=== PATIENT | female | born 1970 | race Two or more races ===

== ENCOUNTER → 2019-08-27 | Outpatient (CLI) | payer BC ==
[~2019-08-27] MED LIST: AMLO25PO MC; AMLO5TAB10 PO; AMLO5TAB4 PO; CETI-17 PO; FLUT16SP2 NS; LOSA-73 PO; LOSA100T14 PO; LOSA1TAB25 PO; METO-239 PO; METO25TA4 PO; POTA20TA4 PO; SIMV10TA15 PO; SIMV40TA18 PO; TRAM100T12 PO; TRAM50TA PO; ZOLPIDEM 5 MG TABLET. PO ONE
--- NOTE | 2019-08-28 19:58 | SLEEP ---
DATE OF STUDY: 08/27/2019 SLEEP STUDY ATTENDING PHYSICIAN: Amalia Kilpatrick MD. The patient is a 48-year-old who weighs 151 pounds with a BMI of 20. The patient had a sleep study at another facility and was positive for ROBERT. This was more than 5 years ago. The patient was referred for another split-night study. During the night study, the patient spent 435 minutes in bed and slept for 401 minutes with a sleep efficiency of 92%. Sleep latency was 24 minutes with a REM latency of 110 minutes. Sleep architecture showed normal stage 1 sleep, increased stage 2 sleep, normal slow wave and normal REM sleep. During the initial diagnostic portion of the study, the patient slept for 134 minutes. During that time, there were 11 obstructive apneas, no mixed or central apneas and 29 hypopneas. The patient's AHI was 18 per hour with a supine AHI of 21 per hour and a REM AHI of 87 per hour. EKG monitoring revealed a mean heart rate of 83 beats per minute, no sustained arrhythmias observed. Nocturnal oximetry study revealed a mean oxygen saturation of 95% with lowest of 77%; 3% of time oxygen saturation remained between 80% and 89%. No significant PLM seen. The patient met the criteria for CPAP initiation. It was started at 5 cm water and titrated up to 7 cm water. At the final pressure, the patient slept for 162 minutes. The patient had supine as well as REM sleep. The patient's AHI was reduced to 0 per hour and oxygen saturation remained above 93%. The patient used small nasal pillows. IMPRESSION: 1. Moderate obstructive sleep apnea with worsening during REM sleep. Total AHI 18 per hour with a REM AHI of 87 per hour. 2. Mild nocturnal hypoxia secondary to obstructive sleep apnea, but resolved with CPAP. 3. No clinically significant periodic limb movements. RECOMMENDATIONS: 1. CPAP at 7 cm water completely eliminated the patient's sleep apnea and should be used on a nightly basis. 2. Follow up in 4-6 weeks to assess compliance with CPAP and to document clinical improvement. 3. Avoid [employer] REPRES[employer]IVE depressants. 4. Cautioned regarding driving until symptoms of sleep apnea resolved with the use of CPAP. MILAGROS PEREZ MD DR: ALDO/bartolo JOB#: [id number] / [id number] ALIA Mclaughlin MD
== END | disposition home or self-care (01) ==
LOC: RT 18:43
PROVIDERS: ATTEND Family Medicine
DX: G47.33 Obstructive sleep apnea (adult) (pediatric) (principal); G47.34 Idiopathic sleep related nonobstructive alveolar hypoventilation
CPT/HCPCS: 95810

== ENCOUNTER → 2019-10-07 | Outpatient (CLI) | payer BC ==
[~2019-10-07] MED LIST changes: +ASPI-630 PO; +ASPI81TA59 PO; +CETI10TA16 PO; +CETI10TA30 PO; +GABA600T7 PO; +IV RINGERS,LACTATED 1000ML 1,000 ML IV SCH; +LISI-338 PO; +ONDANSETRON PF 4 MG/2 ML VIAL. IV PRN; +PROCHLORPERAZINE 10 MG/2 ML VIAL. IV PRN; -ZOLPIDEM 5 MG TABLET. PO ONE; +fentaNYL PF VIAL 100 MCG/2 ML VIAL IV PRN
== END ==
LOC: MERGE 12:17 → SURG 12:17 → SURGPAT 12:17 → EDSTATUS 10-11 07:00
PROVIDERS: ATTEND Internal Medicine Gastroenterology
DX: Z01.812 Encounter for preprocedural laboratory examination (principal); Z11.59 Encounter for screening for other viral diseases; R19.7 Diarrhea, unspecified; R10.9 Unspecified abdominal pain
CPT/HCPCS: 36415; 87635

== ENCOUNTER → 2019-10-11 | Day surgery (SDC) | payer BC ==
[~2019-10-11] MED LIST changes: -ASPI81TA59 PO; +LIDOCAINE 2% PF 5 ML VIAL. ONE; -LISI-338 PO; -ONDANSETRON PF 4 MG/2 ML VIAL. IV PRN; -PROCHLORPERAZINE 10 MG/2 ML VIAL. IV PRN; +PROPOFOL 10 MG/ML (20ML) VIAL. IV ONE; -fentaNYL PF VIAL 100 MCG/2 ML VIAL IV PRN
[2019-10-11 08:15] VITALS: BP 138/84
--- NOTE | 2019-10-14 13:07 | PATHOLOGY ---
[facility] Accession Number: [id number] . 01 Material submitted: . PART A: duodenum - DUODENUM BX PART B: colon - RANDOM COLON BX . 01 Clinical history: . Abdominal pain . 02 Diagnosis: A. Duodenal biopsies: - No significant pathologic abnormalities. . B. Colonic mucosa, random colon biopsies: - No significant pathologic abnormalities. (JPM:alycia; 10/14/2019) S 10/14/2019 0936 Local . 02 Comment: Sections of the duodenal biopsy reveal multiple segments of small intestine mucosa. Where best oriented, the mucosal villi show no sprue-like changes or significant inflammatory changes. . Sections of the random colon biopsy reveal multiple segments of colonic mucosa containing a few mucosal-associated lymphoid aggregates. There is no evidence of a chronic destructive colitis, lymphocytic colitis, or collagenous colitis. (JPM:alycia; 10/14/2019) . 02 Electronically signed: . Jack Sarabia MD, Pathologist NPI- [id number] . 01 Gross description: . A. The specimen is received in formalin labeled "Bee, Nasra, duodenal BX rule out celiac" and consists of multiple fragments of pink-chisholm tissue measuring 2.2 x 0.7 x 0.2 cm in aggregate which is entirely submitted in A1. . B. The specimen is received in formalin labeled "Bee, Nasra, random colon BX" and consists of multiple fragments of pink-chisholm tissue measuring 1.2 x 0.7 x 0.2 cm in aggregate which is entirely submitted in B1. (PATRICIA; 10/11/2019) JFQ/JFQ 10/11/2019 1438 Local . 02 Pathologist provided ICD-10: R10.9 . 02 CPT . 861947, [id number] Specimen Comment: A courtesy copy of this report has been sent to [phone], [phone] Specimen Comment: [id number] Specimen Comment: Report sent to / DR SILVA Performed at: 01 [facility] [address], [place] [id number] MD Forest Worthington MD Phone: [phone] Performed at: 02 [facility] [address], [place] [id number] MD Jack Sarabia MD Phone: [phone]
== END | disposition home or self-care (01) ==
LOC: ENDOS 05:53
PROVIDERS: ATTEND Internal Medicine Gastroenterology
DX: R19.7 Diarrhea, unspecified (principal); K63.89 Other specified diseases of intestine; K29.50 Unspecified chronic gastritis without bleeding; K64.0 First degree hemorrhoids; K31.89 Other diseases of stomach and duodenum; E78.00 Pure hypercholesterolemia, unspecified; I11.0 Hypertensive heart disease with heart failure; I50.9 Heart failure, unspecified; K57.30 Diverticulosis of large intestine without perforation or abscess without bleeding; K21.9 Gastro-esophageal reflux disease without esophagitis; E66.01 Morbid (severe) obesity due to excess calories; Z68.45 Body mass index [BMI] 70 or greater, adult; Z88.8 Allergy status to other drugs, medicaments and biological substances; Z90.49 Acquired absence of other specified parts of digestive tract; Z90.710 Acquired absence of both cervix and uterus
CPT/HCPCS: 43239; 45380; 88305; J2704; J3490

== ENCOUNTER 2019-10-24 18:06 | Inpatient (IN) | payer BC ==
[~2019-10-24] VITALS: Ht 151.1 cm; Wt 75.7 kg
[~2019-10-24 18:06] MED LIST changes: -IV RINGERS,LACTATED 1000ML 1,000 ML IV SCH; -LIDOCAINE 2% PF 5 ML VIAL. ONE; -PROPOFOL 10 MG/ML (20ML) VIAL. IV ONE
[2019-10-24] MEDS ORDERED: IV NORMAL SALINE 1000ML BAG 1,000 ML IV SCH (18:33)
[2019-10-24 18:42] LABS: BASO % 1 % (0-3); EOS # 0.1 x10^3/uL (0.0-0.7); EOS % 2 % (0-3); HEMATOCRIT 41.5 % (36.0-47.0); LYMPH # 2.6 x10^3/uL (1.0-4.8); LYMPH % 40 % (24-48); MEAN CORPUSCULAR HEMOGLOBIN 29 pg (25-35); MEAN CORPUSCULAR HGB CONC 34 g/dL (31-37); MEAN CORPUSCULAR VOLUME 86 fL (79-100); MONO # 0.4 x10^3/uL (0.0-1.1); MONO % 7 % (0-9); NEUT # 3.3 x10^3/uL (1.8-7.7); NEUT % 51 % (31-73); PLATELET COUNT 223 x10^3/uL (140-400); RED BLOOD COUNT 4.84 x10^6/uL (3.50-5.40); RED CELL DISTRIBUTION WIDTH 12.9 % (11.5-14.5); WHITE BLOOD COUNT 6.4 x10^3/uL (4.0-11.0)
[2019-10-24] MEDS ORDERED: MORPHINE SULFATE 4 MG/ML VIAL. IV/SQ PRN (18:45)
[2019-10-24] MEDS ORDERED: ONDANSETRON PF 4 MG/2 ML VIAL. IVP ONE (18:45)
[2019-10-24] MEDS ORDERED: ASPIRIN CHEWABLE 81 MG TABLET. PO ONE (18:45)
--- NOTE | 2019-10-24 18:47 | PHYS DOC ---
Past Medical History Past Medical History: Hypertension, PA, Stroke, Other Additional Past Medical Histor: low K, dumping syndrome, syncope, degenerative bone disease Past Surgical History: Cholecystectomy, Hysterectomy, Tonsillectomy, Other Additional Past Surgical Histo: loop recorder, cardiac cath, endometrial ablation, Smoking Status: Never Smoker Alcohol Use: None Drug Use: None General Adult EDM: Chief Complaint: CHEST PAIN HPI: HPI: Patient is a 48 year old female who presents with complaint of left-sided chest pain that started at about 3:00 to 3:30 this afternoon. Patient states that she was at work when the pain started. She states that this morning when she went into work, she was having some lightheadedness and felt just little bit off. Patient rates pain in her chest at a 9 out of 10. She denies any nausea, vomiting or diaphoresis. She states that pain radiates down her left arm. [] Review of Systems: Review of Systems: Constitutional: Denies fever or chills. [] Respiratory: Denies cough or shortness of breath. [] Cardiovascular: Complains of chest pain. [] GI: Denies abdominal pain, nausea, vomiting or diarrhea. [] Neurologic: Denies headache, focal weakness or sensory changes. [] A full 10 point review of systems has been reviewed and is otherwise negative. Heart Score: Risk Factors: Risk Factors: DM, Current or recent (<one month) smoker, HTN, HLP, family history of CAD, obesity. Risk Scores: Score 0 - 3: 2.5% MACE over next 6 weeks - Discharge Home Score 4 - 6: 20.3% MACE over next 6 weeks - Admit for Clinical Observation Score 7 - 10: 72.7% MACE over next 6 weeks - Early Invasive Strategies Current Medications: Current Medications Medications (Trade) Dose Ordered Sig/Marek Start Time Stop Time Status Last Admin Dose Admin Aspirin (Aspirin Chewable) 324 mg 1X ONCE 10/24/19 18:45 10/24/19 18:46 Morphine Sulfate (Morphine Sulfate) 4 mg PRN Q15MIN PRN 10/24/19 18:45 10/25/19 18:44 UNV Ondansetron HCl (Zofran) 4 mg 1X ONCE 10/24/19 18:45 10/24/19 18:46 UNV Sodium Chloride 1,000 ml @ 1,000 mls/hr Q1H 10/24/19 18:33 10/24/19 19:32 UNV Allergies: Allergies: Allergies Coded Allergies Type Severity Reaction Last Updated Verified Sulfa (Sulfonamide Antibiotics) Allergy Severe Anaphylaxis 10/11/19 Yes ciprofloxacin HCl Allergy Severe Anaphylaxis 10/11/19 Yes doxycycline Allergy Severe Anaphylaxis 10/11/19 Yes sulfamethoxazole Allergy Severe Anaphylaxis 10/11/19 Yes trimethoprim Allergy Severe Anaphylaxis 10/11/19 Yes Latex, Natural Rubber Allergy Intermediate Hives 10/11/19 Yes adhesive Allergy Intermediate 10/11/19 Yes oxycodone Allergy Intermediate Hives 10/11/19 Yes Physical Exam: PE: Constitutional: Well developed, well nourished, no acute distress, non-toxic appearance. [] HENT: Normocephalic, atraumatic, bilateral external ears normal, oropharynx moist, no oral exudates, nose normal. [] Eyes: PERRLA, EOMI, conjunctiva normal, no discharge. [] Neck: Normal range of motion, no tenderness, supple, no stridor. [] Cardiovascular: Regular rate and rhythm [] Lungs & Thorax: Bilateral breath sounds clear to auscultation [] Abdomen: Bowel sounds normal, soft, no tenderness. [] Skin: Warm, dry, no erythema, no rash. [] Extremities: No tenderness, no cyanosis, no clubbing, ROM intact. [] Neurologic: Alert and oriented X 3, no focal deficits noted. [] Current Patient Data: Labs: Laboratory Tests Test 10/24/19 18:25 White Blood Count 6.4 x10^3/uL (4.0-11.0) Red Blood Count 4.84 x10^6/uL (3.50-5.40) Hemoglobin 14.0 g/dL (12.0-15.5) Hematocrit 41.5 % (36.0-47.0) Mean Corpuscular Volume 86 fL (79-100) Mean Corpuscular Hemoglobin 29 pg (25-35) Mean Corpuscular Hemoglobin Concent 34 g/dL (31-37) Red Cell Distribution Width 12.9 % (11.5-14.5) Platelet Count 223 x10^3/uL (140-400) Neutrophils (%) (Auto) 51 % (31-73) Lymphocytes (%) (Auto) 40 % (24-48) Monocytes (%) (Auto) 7 % (0-9) Eosinophils (%) (Auto) 2 % (0-3) Basophils (%) (Auto) 1 % (0-3) Neutrophils # (Auto) 3.3 x10^3/uL (1.8-7.7) Lymphocytes # (Auto) 2.6 x10^3/uL (1.0-4.8) Monocytes # (Auto) 0.4 x10^3/uL (0.0-1.1) Eosinophils # (Auto) 0.1 x10^3/uL (0.0-0.7) Basophils # (Auto) 0.0 x10^3/uL (0.0-0.2) Laboratory Tests 10/24/19 18:25 EKG: EKG: [] Radiology/Procedures: Radiology/Procedures: [] Course & Med Decision Making: Course & Med Decision Making Pertinent Labs and Imaging studies reviewed. (See chart for details) [] Dragon Disclaimer: Dragon Disclaimer: This electronic medical record was generated, in whole or in part, using a voice recognition dictation system. Departure Departure Impression: Primary Impression: Chest pain Qualified Codes: R07.9 - Chest pain, unspecified Disposition: ADMITTED INPATIENT Admitting Physician: SHELL Condition: IMPROVED Referrals: AMALIA SILVA MD (PCP) MICHAEL GONZALES Jr. DO October 24, 2019 18:47
[2019-10-24 18:51] LABS: CALCIUM 8.5 mg/dL (8.5-10.1); CREATININE 0.7 mg/dL (0.6-1.0); GFR 90.1; POTASSIUM 3.3 mmol/L (3.5-5.1)
[2019-10-24 18:57] LABS: ALBUMIN 3.9 g/dL (3.4-5.0); ALBUMIN/GLOBULIN RATIO 1.1 (1.0-1.7); TOTAL BILIRUBIN 0.4 mg/dL (0.2-1.0); TOTAL PROTEIN 7.4 g/dL (6.4-8.2)
--- NOTE | 2019-10-24 19:09 | RAD ---
PORTABLE CHEST 1V Clinical indications: Chest pain. COMPARISON: May 29, 2013. Findings: No acute lung infiltrate or pleural effusion or pulmonary edema or lung mass or pneumothorax is seen. The heart size, pulmonary vasculature, mediastinum and both rosita are unremarkable. Impression: No acute radiographic abnormality is seen. Electronically signed by: Jaison Vargas MD (10/24/2019 7:07 PM) [facility] [place]
[2019-10-24] MEDS ORDERED: MORPHINE SULFATE 4 MG/ML VIAL. IV PRN (19:30)
[2019-10-24 21:30] VITALS: BP 192/103
[2019-10-24 23:50] VITALS: BP 146/98
[2019-10-25] MEDS: ONDANSETRON PF 4 MG/2 ML VIAL. IV PRN ×2 (02:03→09:52)
[2019-10-25 02:35] VITALS: BP 146/86
--- NOTE | 2019-10-25 06:55 | EKG ---
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
[2019-10-25 07:20] VITALS: BP 138/85
--- NOTE | 2019-10-25 08:21 | PDOC2 ---
CARDIAC CONSULT DATE OF CONSULT Date of Consult DATE: 10/25/19 TIME: 08:11 REASON FOR CONSULT Reason for Consult: Chest pain REFERRING PHYSICIAN Referring Physician: Bk SOURCE Source: Chart review, Patient HISTORY OF PRESENT ILLNESS HISTORY OF PRESENT ILLNESS This is a pleasant 48 yo female admitted for complains of chest pain. 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 No recent heavy lifting. She was at work after getting some auto parts that were light when she started not feeling. Reports of shocking chest pain radiating to left shoulder and being lightheaded and nauseated and this occurred around 3 PM lasting about 30 minutes and evetually disspitating upon admission but still overnight it was on and off occruing mostly when walking to the bathroom. This is not reproducible with ROM maneuvers and palpation. nor deep breathing. Denies any recent falls, syncope or any recent injuries. 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 She used to live here but moved to [facility] and had echo and stress test mid last yr for JEYSON clearance. She had remote [facility] with no intervention. She has DM hx bu8t taken off meds due to hypoglycemia. She also had ILR in the past due to syncope but EP noted no conclusive rhythm anomalies and was taken out 6 weeks later after insertion. 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) Pulmonary: COPD, Other (ROBERT CPAP) CENTRAL NERVOUS SYSTEM: Migraine, Periperal neuropathy GI: GERD Psych: Anxiety Musculoskeletal: low back pain (lumbar syenosis) Rheumatologic: No pertinent hx Infectious disease: No pertinent hx ENT: Allergic Rhinitis Renal/: Other (menopause) Endocrine: Diabetes (no med), Other (hypglycemia) Dermatology: No pertinent hx PAST SURGICAL HISTORY Past Surgical History: Appendectomy, Cholecystectomy, , Tonsillectomy, Hysterectomy, Other (ILR 2013, LHCx2; recently had EGD/colonoscopy for abd pain >1 wk ago result pending) FAMILY HISTORY Family History: Coronary Artery Disease (father) SOCIAL HISTORY Smoke: No ALCOHOL: none Drugs: None Lives: with Family CURRENT MEDICATIONS CURRENT MEDICATIONS Current Medications Medications (Trade) Dose Ordered Sig/Marek Route PRN Reason Start Time Stop Time Status Last Admin Dose Admin Aspirin (Aspirin Chewable) 324 mg 1X ONCE PO 10/24/19 18:45 10/24/19 18:46 DC 10/24/19 19:04 Morphine Sulfate (Morphine Sulfate) 4 mg PRN Q15MIN PRN IV/SQ PAIN GREATER THAN 3/10 10/24/19 18:45 10/25/19 18:44 10/24/19 19:04 Sodium Chloride 1,000 ml @ 1,000 mls/hr Q1H IV 10/24/19 18:33 10/24/19 19:32 DC 10/24/19 19:05 Ondansetron HCl (Zofran) 4 mg 1X ONCE IVP 10/24/19 18:45 10/24/19 18:46 DC 10/24/19 19:04 Ondansetron HCl (Zofran) 4 mg PRN Q8HRS PRN IV NAUSEA/VOMITING 10/24/19 19:30 10/25/19 19:29 10/25/19 02:03 Morphine Sulfate (Morphine Sulfate) 4 mg PRN Q2HR PRN IV PAIN 10/24/19 19:30 10/25/19 19:29 10/25/19 02:02 ALLERGIES ALLERGIES: Coded Allergies: Sulfa (Sulfonamide Antibiotics) (Verified Allergy, Severe, Anaphylaxis, 10/11/19) ciprofloxacin HCl (Verified Allergy, Severe, Anaphylaxis, 10/11/19) doxycycline (Verified Allergy, Severe, Anaphylaxis, 10/11/19) sulfamethoxazole (Verified Allergy, Severe, Anaphylaxis, 10/11/19) trimethoprim (Verified Allergy, Severe, Anaphylaxis, 10/11/19) Latex, Natural Rubber (Verified Allergy, Intermediate, Hives, 10/11/19) adhesive (Verified Allergy, Intermediate, 10/11/19) oxycodone (Verified Allergy, Intermediate, Hives, 10/24/19) MORPHINE OK ROS Review of System 14 point ROS evaluated with pertinent PHYSICAL EXAM General: Alert, Oriented X3, Cooperative, No acute distress HEENT: Atraumatic, Mucous membr. moist/pink Lungs: Clear to auscultation, Normal air movement Heart: Regular rate (SR), Normal S1, Normal S2, No murmurs Abdomen: Soft, No tenderness Extremities: No cyanosis, Other (trace LE edma) Skin: No breakdown, No significant lesion Neuro: Normal speech, Sensation intact Psych/Mental Status: Mental status NL, Mood NL MUSCULOSKELETAL: Osteoarthritic changes both hands VITALS/I&O VITALS/I&O: Vital Signs Date Time Temp Pulse Resp B/P (MAP) Pulse Ox O2 Delivery O2 Flow Rate FiO2 10/25/19 07:20 97.2 72 18 138/85 (102) 98 Room Air 97.2 I & O 10/24/19 10/24/19 10/25/19 15:00 23:00 07:00 Intake Total 1240 ml 300 ml Output Total 475 ml Balance 1240 ml -175 ml LABS Lab: Laboratory Tests Test 10/24/19 18:25 10/24/19 22:22 10/25/19 01:40 White Blood Count 6.4 x10^3/uL (4.0-11.0) Red Blood Count 4.84 x10^6/uL (3.50-5.40) Hemoglobin 14.0 g/dL (12.0-15.5) Hematocrit 41.5 % (36.0-47.0) Mean Corpuscular Volume 86 fL (79-100) Mean Corpuscular Hemoglobin 29 pg (25-35) Mean Corpuscular Hemoglobin Concent 34 g/dL (31-37) Red Cell Distribution Width 12.9 % (11.5-14.5) Platelet Count 223 x10^3/uL (140-400) Neutrophils (%) (Auto) 51 % (31-73) Lymphocytes (%) (Auto) 40 % (24-48) Monocytes (%) (Auto) 7 % (0-9) Eosinophils (%) (Auto) 2 % (0-3) Basophils (%) (Auto) 1 % (0-3) Neutrophils # (Auto) 3.3 x10^3/uL (1.8-7.7) Lymphocytes # (Auto) 2.6 x10^3/uL (1.0-4.8) Monocytes # (Auto) 0.4 x10^3/uL (0.0-1.1) Eosinophils # (Auto) 0.1 x10^3/uL (0.0-0.7) Basophils # (Auto) 0.0 x10^3/uL (0.0-0.2) Sodium Level 139 mmol/L (136-145) Potassium Level 3.3 mmol/L (3.5-5.1) L Chloride Level 102 mmol/L (98-107) Carbon Dioxide Level 27 mmol/L (21-32) Anion Gap 10 (6-14) Blood Urea Nitrogen 8 mg/dL (7-20) Creatinine 0.7 mg/dL (0.6-1.0) Estimated GFR (Cockcroft-Gault) 90.1 BUN/Creatinine Ratio 11 (6-20) Glucose Level 84 mg/dL (70-99) Calcium Level 8.5 mg/dL (8.5-10.1) Magnesium Level 2.0 mg/dL (1.8-2.4) Total Bilirubin 0.4 mg/dL (0.2-1.0) Aspartate Amino Transferase (AST) 25 U/L (15-37) Alanine Aminotransferase (ALT) 26 U/L (14-59) Alkaline Phosphatase 83 U/L (46-116) Troponin I Quantitative < 0.017 ng/mL (0.000-0.055) < 0.017 ng/mL (0.000-0.055) < 0.017 ng/mL (0.000-0.055) WZ-Dpl-K-Type Natriuretic Peptide 45 pg/mL (0-124) Total Protein 7.4 g/dL (6.4-8.2) Albumin 3.9 g/dL (3.4-5.0) Albumin/Globulin Ratio 1.1 (1.0-1.7) Lipase 102 U/L (73-393) Laboratory Tests 10/24/19 18:25 Laboratory Tests 10/24/19 18:25 ECHOCARDIOGRAM ECHOCARDIOGRAM KYMBERLY <Conclusion> The left ventricle is normal size. There is normal left ventricular wall thickness. The left ventricular systolic function is normal and the ejection fraction is within normal range. The aortic valve is normal in structure and function. The mitral valve is normal in structure and function. Doppler and Color Flow revealed trace mitral regurgitation. The aortic root is normal in size.No dissection is noted DICTATED and SIGNED BY: ALMA HADDAD MD DATE: 08/12/13 1212 STRESS TEST STRESS TEST Conclusion 1. There are no significant stress EKG changes or ST changes noted. 2. The stress and resting images show normal perfusion. 3. Left ventricular function is normal 4. Low risk MPI DATE: 06/03/13 1104 ASSESSMENT/PLAN ASSESSMENT/PLAN 1. Atypical CP: doubt ACS, possibly anxiety and uncontrolled HTN. trops nml 2. HTN urgency: better 3. Anxiety: per PCP 4. 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 HLP 7. Hx of DM/hypoglycemia: no meds and BG is controlled so far Recommendations 1. Start on low dose lisinopril. Encouraged HBPM 2. Check lipids and TSH. Start statin pending lipid level. TTE 3. Follow up in office with Dr Davila on December 26 9:15 4. Consider baby ECASA if not contraindicated from EGD/colonoscopy findings 5. Monitor overnight anticpate DC tomorrow. Awaiting cardiac records RANDEE CELAYA APRN October 25, 2019 08:21
--- NOTE | 2019-10-25 08:37 | PDOC1 ---
History and Physical Date of Admission Date of Admission DATE: 10/25/19 TIME: 08:36 Identification/Chief Complaint Chief Complaint chest pain Source Source: Chart review, Patient History of Present Illness History of Present Illness Ms. Thapa, is a 48 year old female who presents with complaint of left-sided chest pain. 01/12, Her pain started yesterday afternoon, and she was at work at the time. pain then radiated down her left arm She states that this morning when she went into work, she was having some lightheadedness and felt just little bit off. . She denies any nausea, vomiting or diaphoresis. 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) Pulmonary: COPD, Other (ROBERT CPAP) CENTRAL NERVOUS SYSTEM: Migraine GI: GERD Psych: Anxiety Renal/: Other (menopause) Past Surgical History Past Surgical History: Appendectomy, Cholecystectomy, , Tonsillectomy, Hysterectomy, Other (ILR 2014, LHCx2) Family History Family History: Coronary Artery Disease (father) Family History: Parent, Grandparents Social History Smoke: No ALCOHOL: none Drugs: None Current Problem List Problem List Problems Medical Problems: (1) Chest pain Status: Acute Current Medications Current Medications Current Medications Aspirin (Aspirin Chewable) 324 mg 1X ONCE PO Last administered on 10/24/19at 19:04; Start 10/24/19 at 18:45; Stop 10/24/19 at 18:46; Status DC Morphine Sulfate (Morphine Sulfate) 4 mg PRN Q15MIN PRN IV/SQ PAIN GREATER THAN 3/10 Last administered on 10/24/19at 19:04; Start 10/24/19 at 18:45; Stop 10/25/19 at 18:44 Sodium Chloride 1,000 ml @ 1,000 mls/hr Q1H IV Last administered on 10/24/19at 19:05; Start 10/24/19 at 18:33; Stop 10/24/19 at 19:32; Status DC Ondansetron HCl (Zofran) 4 mg 1X ONCE IVP Last administered on 10/24/19at 19:04; Start 10/24/19 at 18:45; Stop 10/24/19 at 18:46; Status DC Ondansetron HCl (Zofran) 4 mg PRN Q8HRS PRN IV NAUSEA/VOMITING Last administered on 10/25/19at 02:03; Start 10/24/19 at 19:30; Stop 10/25/19 at 19:29 Morphine Sulfate (Morphine Sulfate) 4 mg PRN Q2HR PRN IV PAIN Last administered on 10/25/19at 02:02; Start 10/24/19 at 19:30; Stop 10/25/19 at 19:29 Active Scripts Active Reported Gabapentin 600 Mg Tablet 300 Mg PO BID PRN Allergies Allergies: Coded Allergies: Sulfa (Sulfonamide Antibiotics) (Verified Allergy, Severe, Anaphylaxis, 10/11/19) ciprofloxacin HCl (Verified Allergy, Severe, Anaphylaxis, 10/11/19) doxycycline (Verified Allergy, Severe, Anaphylaxis, 10/11/19) sulfamethoxazole (Verified Allergy, Severe, Anaphylaxis, 10/11/19) trimethoprim (Verified Allergy, Severe, Anaphylaxis, 10/11/19) Latex, Natural Rubber (Verified Allergy, Intermediate, Hives, 10/11/19) adhesive (Verified Allergy, Intermediate, 10/11/19) oxycodone (Verified Allergy, Intermediate, Hives, 10/24/19) MORPHINE OK ROS General: No: Chills, Night Sweats, Fatigue, Malaise, Appetite, Other PSYCHOLOGICAL ROS: No: Anxiety, Behavioral Disorder, Concentration difficultie, Decreased libido, Depression, Disorientation, Hallucinations, Hostility, Irritablity, Memory difficulties, Mood Swings, Obsessive thoughts, Suicidal ideation, Other Eyes: No Blurry vision, No Decreased vision, No Double vision, No Dry eyes, No Excessive tearing, No Eye Pain, No Itchy Eyes, No Loss of vision, No Photophobia, No Scotomata, No Uses contacts, No Uses glasses, No Other Respiratory: No: Cough, Hemoptysis, Orthopnea, Pleuritic Pain, Shortness of breath, SOB with excertion, Sputum Changes, Stridor, Tachypnea, Wheezing, Other Cardiovascular: No Chest Pain, No Palpitations, No Orthopnea, No Paroxysmal Noc. Dyspnea, No Edema, No Lt Headedness, No Other Gastrointestinal: Yes Nausea; No Vomiting, No Abdominal Pain, No Diarrhea, No Constipation, No Melena, No Hematochezia, No Other Genitourinary: No Dysuria, No Frequency, No Incontinence, No Hematuria, No Retention, No Discharge, No Urgency, No Pain, No Flank Pain, No Other, No , No , No , No , No , No , No Musculoskeletal: Yes Joint Stiffness; No Gait Disturbance, No Joint Pain, No Joint Swelling, No Muscle Pain, No Muscular Weakness, No Pain In:, No Swelling In:, No Other Neurological: No Behavorial Changes, No Bowel/Bladder ControlChng, No Confusion, No Dizziness, No Gait Disturbance, No Headaches, No Impaired Coord/balance, No Memory Loss, No Numbness/Tingling, No Seizures, No Speech Problems, No Tremors, No Visual Changes, No Weakness, No Other Skin: Yes Dry Skin; No Eczema, No Hair Changes, No Lumps, No Mole Changes, No Mottling, No Nail Changes, No Pruritus, No Rash, No Skin Lesion Changes, No Other, No Acne Physical Exam General: Alert, Oriented X3, Cooperative, No acute distress HEENT: EOMI, Mucous membr. moist/pink Lungs: Clear to auscultation, Normal air movement Heart: S1S2, RRR, no gallops, no murmurs Abdomen: Normal bowel sounds, Soft Extremities: No edema, Normal pulses Skin: No rashes, No breakdown, No significant lesion Neuro: Normal speech, Normal tone, Sensation intact, Cranial nerves 3-12 NL Psych/Mental Status: Mental status NL, Mood NL Vitals Vitals Vital Signs Date Time Temp Pulse Resp B/P (MAP) Pulse Ox O2 Delivery O2 Flow Rate FiO2 10/25/19 07:20 97.2 72 18 138/85 (102) 98 Room Air 97.2 Labs Labs Laboratory Tests Test 10/24/19 18:25 10/24/19 22:22 10/25/19 01:40 White Blood Count 6.4 x10^3/uL (4.0-11.0) Red Blood Count 4.84 x10^6/uL (3.50-5.40) Hemoglobin 14.0 g/dL (12.0-15.5) Hematocrit 41.5 % (36.0-47.0) Mean Corpuscular Volume 86 fL (79-100) Mean Corpuscular Hemoglobin 29 pg (25-35) Mean Corpuscular Hemoglobin Concent 34 g/dL (31-37) Red Cell Distribution Width 12.9 % (11.5-14.5) Platelet Count 223 x10^3/uL (140-400) Neutrophils (%) (Auto) 51 % (31-73) Lymphocytes (%) (Auto) 40 % (24-48) Monocytes (%) (Auto) 7 % (0-9) Eosinophils (%) (Auto) 2 % (0-3) Basophils (%) (Auto) 1 % (0-3) Neutrophils # (Auto) 3.3 x10^3/uL (1.8-7.7) Lymphocytes # (Auto) 2.6 x10^3/uL (1.0-4.8) Monocytes # (Auto) 0.4 x10^3/uL (0.0-1.1) Eosinophils # (Auto) 0.1 x10^3/uL (0.0-0.7) Basophils # (Auto) 0.0 x10^3/uL (0.0-0.2) Sodium Level 139 mmol/L (136-145) Potassium Level 3.3 mmol/L (3.5-5.1) Chloride Level 102 mmol/L (98-107) Carbon Dioxide Level 27 mmol/L (21-32) Anion Gap 10 (6-14) Blood Urea Nitrogen 8 mg/dL (7-20) Creatinine 0.7 mg/dL (0.6-1.0) Estimated GFR (Cockcroft-Gault) 90.1 BUN/Creatinine Ratio 11 (6-20) Glucose Level 84 mg/dL (70-99) Calcium Level 8.5 mg/dL (8.5-10.1) Magnesium Level 2.0 mg/dL (1.8-2.4) Total Bilirubin 0.4 mg/dL (0.2-1.0) Aspartate Amino Transf (AST/SGOT) 25 U/L (15-37) Alanine Aminotransferase (ALT/SGPT) 26 U/L (14-59) Alkaline Phosphatase 83 U/L (46-116) Troponin I Quantitative < 0.017 ng/mL (0.000-0.055) < 0.017 ng/mL (0.000-0.055) < 0.017 ng/mL (0.000-0.055) CX-Jgl-L-Type Natriuretic Peptide 45 pg/mL (0-124) Total Protein 7.4 g/dL (6.4-8.2) Albumin 3.9 g/dL (3.4-5.0) Albumin/Globulin Ratio 1.1 (1.0-1.7) Lipase 102 U/L (73-393) Laboratory Tests Test 10/24/19 18:25 10/24/19 22:22 10/25/19 01:40 White Blood Count 6.4 x10^3/uL (4.0-11.0) Red Blood Count 4.84 x10^6/uL (3.50-5.40) Hemoglobin 14.0 g/dL (12.0-15.5) Hematocrit 41.5 % (36.0-47.0) Mean Corpuscular Volume 86 fL (79-100) Mean Corpuscular Hemoglobin 29 pg (25-35) Mean Corpuscular Hemoglobin Concent 34 g/dL (31-37) Red Cell Distribution Width 12.9 % (11.5-14.5) Platelet Count 223 x10^3/uL (140-400) Neutrophils (%) (Auto) 51 % (31-73) Lymphocytes (%) (Auto) 40 % (24-48) Monocytes (%) (Auto) 7 % (0-9) Eosinophils (%) (Auto) 2 % (0-3) Basophils (%) (Auto) 1 % (0-3) Neutrophils # (Auto) 3.3 x10^3/uL (1.8-7.7) Lymphocytes # (Auto) 2.6 x10^3/uL (1.0-4.8) Monocytes # (Auto) 0.4 x10^3/uL (0.0-1.1) Eosinophils # (Auto) 0.1 x10^3/uL (0.0-0.7) Basophils # (Auto) 0.0 x10^3/uL (0.0-0.2) Sodium Level 139 mmol/L (136-145) Potassium Level 3.3 mmol/L (3.5-5.1) Chloride Level 102 mmol/L (98-107) Carbon Dioxide Level 27 mmol/L (21-32) Anion Gap 10 (6-14) Blood Urea Nitrogen 8 mg/dL (7-20) Creatinine 0.7 mg/dL (0.6-1.0) Estimated GFR (Cockcroft-Gault) 90.1 BUN/Creatinine Ratio 11 (6-20) Glucose Level 84 mg/dL (70-99) Calcium Level 8.5 mg/dL (8.5-10.1) Magnesium Level 2.0 mg/dL (1.8-2.4) Total Bilirubin 0.4 mg/dL (0.2-1.0) Aspartate Amino Transf (AST/SGOT) 25 U/L (15-37) Alanine Aminotransferase (ALT/SGPT) 26 U/L (14-59) Alkaline Phosphatase 83 U/L (46-116) Troponin I Quantitative < 0.017 ng/mL (0.000-0.055) < 0.017 ng/mL (0.000-0.055) < 0.017 ng/mL (0.000-0.055) ZB-Wlr-M-Type Natriuretic Peptide 45 pg/mL (0-124) Total Protein 7.4 g/dL (6.4-8.2) Albumin 3.9 g/dL (3.4-5.0) Albumin/Globulin Ratio 1.1 (1.0-1.7) Lipase 102 U/L (73-393) VTE Prophylaxis Ordered VTE Prophylaxis Devices: Yes VTE Pharmacological Prophylaxi: No Assessment/Plan Assessment/Plan chest pain, angina hx CAD, she reports prior RI at hospital is [place], noncompliance meds, not on aspirin or b-letty or statin, , statin caused pain, she reports blood pressure only elevated due to chronic back pain sjhe has been off aspirin due to having a GI scope done 2 weeks ago. obese, BMI 33 records requested from outside hospital, [place] ARUNA DING MD October 25, 2019 08:37
[2019-10-25] MEDS ORDERED: IV DEXTROSE 5 %-0.45 % NACL 1,000 ML IV SCH (10:00)
[2019-10-25 10:16] LABS: ALBUMIN 3.1 g/dL (3.4-5.0); CALCIUM 8.2 mg/dL (8.5-10.1); CREATININE 0.8 mg/dL (0.6-1.0); GFR 77.2; MAGNESIUM 2.1 mg/dL (1.8-2.4); PHOSPHORUS 3.3 mg/dL (2.6-4.7); POTASSIUM 3.9 mmol/L (3.5-5.1)
[2019-10-25 10:24] VITALS: BP 134/80
--- NOTE | 2019-10-25 11:57 | CARD ---
MR#: [id number] Date of Study: 10/25/2019 Ordering Physician: RANDEE CELAYA, Referring Physician: RANDEE CELAYA, Tech: Krista Read [facility] APPROVED REPORT EXAM: Two-dimensional and M-mode echocardiogram with Doppler and color Doppler. Other Information Quality : Good Rhythm : NSR INDICATION Chest Pain 2D DIMENSIONS RVDd2.4 (2.9-3.5cm)Left Atrium(2D)3.5 (1.6-4.0cm) IVSd1.2 (0.7-1.1cm)Aortic Root(2D)2.3 (2.0-3.7cm) LVDd3.7 (3.9-5.9cm)LVOT Diameter1.8 (1.8-2.4cm) PWd1.0 (0.7-1.1cm)LVDs2.0 (2.5-4.0cm) FS (%) 30.0 %SV46.2 ml LVEF(%)60.0 (>50%) Aortic Valve AoV Peak Pawel.125.6cm/sAoV VTI26.8cm AO Peak GR.6.3mmHgLVOT Peak Pawel.101.4cm/s AO Mean GR.4mmHgAVA (VMAX)2.10cm2 WES (VTI)2.30cm2 Mitral Valve MV E Onwzfybv287.4cm/sMV DECEL EGEK912be MV A Utvcwabw92.6cm/sE/A Ratio1.2 Tricuspid Valve TR P. Kbvbxwyd220zv/sRAP FZBOILXP7qgOg TR Peak Gr.58uwStDVKW87utWv Pulmonary Vein S1 Enamzwwm09.7cm/sD2 Nuyjcpvf93.2cm/s LEFT VENTRICLE The left ventricle is normal size. There is mild concentric left ventricular hypertrophy. The left ve ntricular systolic function is normal and the ejection fraction is within normal range. The Ejection Fraction is 55-60%. There is normal LV segmental wall motion. The left ventricular diastolic function and filling is normal for age. RIGHT VENTRICLE The right ventricle is normal size. The right ventricular systolic function is normal. ATRIA The left atrium size is normal. The right atrium size is normal. The interatrial septum is intact wit h no evidence for an atrial septal defect or patent foramen ovale as noted on 2-D or Doppler imaging. AORTIC VALVE The aortic valve is normal in structure and function. Doppler and Color Flow revealed no significant aortic regurgitation. There is no significant aortic valvular stenosis. MITRAL VALVE The mitral valve is normal in structure and function. There is no evidence of mitral valve prolapse. There is no mitral valve stenosis. Doppler and Color-flow revealed trace mitral regurgitation. TRICUSPID VALVE The tricuspid valve is normal in structure and function. Doppler and Color Flow revealed trace tricus pid regurgitation. The PA pressure was estimated at 28 mmHg. There is no tricuspid valve stenosis. PULMONIC VALVE The pulmonary valve is normal in structure and function. Doppler and Color Flow revealed trace pulmon ic valvular regurgitation. There is no pulmonic valvular stenosis. GREAT VESSELS The aortic root is normal in size. The ascending aorta is normal in size. The IVC is normal in size a nd collapses >50% with inspiration. PERICARDIAL EFFUSION There is no evidence of significant pericardial effusion. Critical Notification Critical Value: No <Conclusion> The left ventricle is normal size. The left ventricular systolic function is normal and the ejection fraction is within normal range. The Ejection Fraction is 55-60%. There is mild concentric left ventricular hypertrophy. Doppler and Color Flow revealed no significant aortic regurgitation. There is no significant aortic valvular stenosis. Doppler and Color-flow revealed trace mitral regurgitation. Doppler and Color Flow revealed trace tricuspid regurgitation. The PA pressure was estimated at 28 mmHg. Signed by : Bennett Calvillo MD Electronically Approved : 10/25/2019 11:57:07
[2019-10-25 14:08] VITALS: BP 147/75
--- NOTE | 2019-10-25 14:53 | NUR ---
SS following for discharge planning. SS reviewed pt chart and discussed with pt RN. Pt is from home and is currently on room air. SS will continue to follow for discharge planning.
[2019-10-25] MEDS ORDERED: LISINOPRIL 5 MG TABLET. PO SCH ×2 (16:30→21:00)
[2019-10-25 16:54] LABS: CHOLESTEROL/HDL RATIO 5.4
[2019-10-25 19:33] VITALS: BP 134/80
[2019-10-25] MEDS ORDERED: ACETAMINOPHEN 325 MG TABLET. PO PRN (20:15)
[2019-10-25] MEDS ORDERED: ONDANSETRON PF 4 MG/2 ML VIAL. IVP PRN (20:15)
[2019-10-25 22:55] VITALS: BP 132/82
[2019-10-26 03:54] VITALS: BP 120/68
[2019-10-26 07:00] VITALS: BP 107/62
[2019-10-26] MEDS ORDERED: LISI-338 PO (10:37)
[2019-10-26] MEDS ORDERED: ASPI81TA59 PO (10:39)
--- NOTE | 2019-10-26 10:40 | PDOC3 ---
Discharge Summary Visit Information Date of Admission: October 24, 2019 Date of Discharge: October 26, 2019 Final Diagnosis 1. Atypical CP: doubt ACS, possibly anxiety and uncontrolled HTN. trops nml 2. HTN urgency: better 3. Anxiety: per PCP 4. 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 HLP 7. Hx of DM/hypoglycemia: no meds and BG is controlled so far Problems Medical Problems: (1) Chest pain Status: Acute Brief Hospital Course Allergies Allergies Coded Allergies Type Severity Reaction Last Updated Verified Sulfa (Sulfonamide Antibiotics) Allergy Severe Anaphylaxis 10/11/19 Yes ciprofloxacin HCl Allergy Severe Anaphylaxis 10/11/19 Yes doxycycline Allergy Severe Anaphylaxis 10/11/19 Yes sulfamethoxazole Allergy Severe Anaphylaxis 10/11/19 Yes trimethoprim Allergy Severe Anaphylaxis 10/11/19 Yes Latex, Natural Rubber Allergy Intermediate Hives 10/11/19 Yes adhesive Allergy Intermediate 10/11/19 Yes oxycodone Allergy Intermediate Hives 10/24/19 Yes Vital Signs Vital Signs Date Time Temp Pulse Resp B/P (MAP) Pulse Ox O2 Delivery O2 Flow Rate FiO2 10/26/19 08:00 Room Air 10/26/19 07:00 97.7 71 16 107/62 (77) 96 97.7 10/25/19 22:55 1.5 Lab Results Laboratory Tests Test 10/24/19 18:25 10/24/19 22:22 10/25/19 01:40 10/25/19 16:18 White Blood Count 6.4 x10^3/uL (4.0-11.0) Red Blood Count 4.84 x10^6/uL (3.50-5.40) Hemoglobin 14.0 g/dL (12.0-15.5) Hematocrit 41.5 % (36.0-47.0) Mean Corpuscular Volume 86 fL (79-100) Mean Corpuscular Hemoglobin 29 pg (25-35) Mean Corpuscular Hemoglobin Concent 34 g/dL (31-37) Red Cell Distribution Width 12.9 % (11.5-14.5) Platelet Count 223 x10^3/uL (140-400) Neutrophils (%) (Auto) 51 % (31-73) Lymphocytes (%) (Auto) 40 % (24-48) Monocytes (%) (Auto) 7 % (0-9) Eosinophils (%) (Auto) 2 % (0-3) Basophils (%) (Auto) 1 % (0-3) Neutrophils # (Auto) 3.3 x10^3/uL (1.8-7.7) Lymphocytes # (Auto) 2.6 x10^3/uL (1.0-4.8) Monocytes # (Auto) 0.4 x10^3/uL (0.0-1.1) Eosinophils # (Auto) 0.1 x10^3/uL (0.0-0.7) Basophils # (Auto) 0.0 x10^3/uL (0.0-0.2) Sodium Level 139 mmol/L (136-145) 141 mmol/L (136-145) Potassium Level 3.3 mmol/L (3.5-5.1) 3.9 mmol/L (3.5-5.1) Chloride Level 102 mmol/L (98-107) 105 mmol/L (98-107) Carbon Dioxide Level 27 mmol/L (21-32) 26 mmol/L (21-32) Anion Gap 10 (6-14) 10 (6-14) Blood Urea Nitrogen 8 mg/dL (7-20) 8 mg/dL (7-20) Creatinine 0.7 mg/dL (0.6-1.0) 0.8 mg/dL (0.6-1.0) Estimated GFR (Cockcroft-Gault) 90.1 77.2 BUN/Creatinine Ratio 11 (6-20) Glucose Level 84 mg/dL (70-99) 95 mg/dL (70-99) Calcium Level 8.5 mg/dL (8.5-10.1) 8.2 mg/dL (8.5-10.1) Magnesium Level 2.0 mg/dL (1.8-2.4) 2.1 mg/dL (1.8-2.4) Total Bilirubin 0.4 mg/dL (0.2-1.0) Aspartate Amino Transf (AST/SGOT) 25 U/L (15-37) Alanine Aminotransferase (ALT/SGPT) 26 U/L (14-59) Alkaline Phosphatase 83 U/L (46-116) Troponin I Quantitative < 0.017 ng/mL (0.000-0.055) < 0.017 ng/mL (0.000-0.055) < 0.017 ng/mL (0.000-0.055) XZ-Vlx-M-Type Natriuretic Peptide 45 pg/mL (0-124) Total Protein 7.4 g/dL (6.4-8.2) Albumin 3.9 g/dL (3.4-5.0) 3.1 g/dL (3.4-5.0) Albumin/Globulin Ratio 1.1 (1.0-1.7) Lipase 102 U/L (73-393) Phosphorus Level 3.3 mg/dL (2.6-4.7) Triglycerides Level 319 mg/dL (0-150) Cholesterol Level 198 mg/dL (0-200) LDL Cholesterol, Calculated 97 mg/dL (0-100) VLDL Cholesterol, Calculated 64 mg/dL (0-40) Non-HDL Cholesterol Calculated 161 mg/dL (0-129) HDL Cholesterol 37 mg/dL (40-60) Cholesterol/HDL Ratio 5.4 Thyroid Stimulating Hormone (TSH) 3.580 uIU/mL (0.358-3.74) Glucose (Fingerstick) 114 mg/dL (70-99) Test 10/25/19 20:39 Glucose (Fingerstick) 98 mg/dL (70-99) Laboratory Tests Test 10/25/19 16:18 10/25/19 20:39 Glucose (Fingerstick) 114 mg/dL (70-99) 98 mg/dL (70-99) Brief Hospital Course Ms. Bee is a 48 old admit with chest pain, acute left pain to chest and arm, TTE was excellent, seen here previously > 5 years ago, records reviewed by CV team from [place], felt better in AM Discharge Information Condition at Discharge: Improved Follow Up: Weeks Disposition/Orders: D/C to Home Scheduled Aspirin (Children's Aspirin) 81 Mg Tab.chew, 1 TAB PO DAILY for cardiac prevention for 30 Days, #100 Ref 0 Prescribed by: ARUNA DING on 10/26/19 1039 Lisinopril (Lisinopril) 5 Mg Tablet, 5 MG PO QHS for htn, #30 Prescribed by: ARUNA DING on 10/26/19 1037 Scheduled PRN Gabapentin (Gabapentin) 600 Mg Tablet, 300 MG PO BID PRN for PAIN, (Reported) Entered as Reported by: AMALIA GONZALES on 10/11/19624 Discontinued Medications Aspirin (Aspirin) 81 Mg Tab.chew, 1 TAB PO DAILY for heart, #30 Ref 3 (Reported) Entered as Reported by: AMALIA GONZALES on 10/11/19624 Last Action: Discontinued on 10/25/19 0700 by Nati Copeland Cetirizine Hcl (Cetirizine Hcl) 10 Mg Tablet, 10 MG PO DAILY, (Reported) Entered as Reported by: KOBE HORVATH on 07/31/13 1402 Last Action: Discontinued on 10/25/19 0700 by Nati Copeland Fluticasone Propionate (Flonase) 16 Gm Esmond.susp, 16 GM NS BID, (Reported) Entered as Reported by: Myriam Moon on 06/25/13 0407 Last Action: Discontinued on 10/25/19 0700 by Nati Copeland Patient Instructions Patient Instructions > 30 min face to face ARUNA DING MD October 26, 2019 10:40
[2019-10-26 10:49] VITALS: BP 122/73
--- NOTE | 2019-10-26 13:39 | PDOC ---
PROGRESS NOTES Subjective Subjective Patient seen and examined Objective Objective Vital Signs Date Time Temp Pulse Resp B/P (MAP) Pulse Ox O2 Delivery O2 Flow Rate FiO2 10/26/19 10:49 98.0 80 16 122/73 (89) 98 Room Air 98.0 10/25/19 22:55 1.5 Intake and Output 10/26/19 07:00 Intake Total 440 ml Output Total 300 ml Balance 140 ml Intake Oral 440 ml Output Urine Total 300 ml Physical Exam Abdomen: Normal bowel sounds Heart: Regular rate General: No acute distress Lungs: Clear to auscultation Assessment Assessment Problems Medical Problems: (1) Chest pain Status: Acute Atypical CP: Resolved, trops nml HTN urgency: improved. 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 Stable. Medical treatment as above. Office follow-up. HLP Comment Review of Relevant I have reviewed the following items tru (where applicable) has been applied. Labs Laboratory Tests Test 10/24/19 18:25 10/24/19 22:22 10/25/19 01:40 10/25/19 16:18 White Blood Count 6.4 x10^3/uL (4.0-11.0) Red Blood Count 4.84 x10^6/uL (3.50-5.40) Hemoglobin 14.0 g/dL (12.0-15.5) Hematocrit 41.5 % (36.0-47.0) Mean Corpuscular Volume 86 fL (79-100) Mean Corpuscular Hemoglobin 29 pg (25-35) Mean Corpuscular Hemoglobin Concent 34 g/dL (31-37) Red Cell Distribution Width 12.9 % (11.5-14.5) Platelet Count 223 x10^3/uL (140-400) Neutrophils (%) (Auto) 51 % (31-73) Lymphocytes (%) (Auto) 40 % (24-48) Monocytes (%) (Auto) 7 % (0-9) Eosinophils (%) (Auto) 2 % (0-3) Basophils (%) (Auto) 1 % (0-3) Neutrophils # (Auto) 3.3 x10^3/uL (1.8-7.7) Lymphocytes # (Auto) 2.6 x10^3/uL (1.0-4.8) Monocytes # (Auto) 0.4 x10^3/uL (0.0-1.1) Eosinophils # (Auto) 0.1 x10^3/uL (0.0-0.7) Basophils # (Auto) 0.0 x10^3/uL (0.0-0.2) Sodium Level 139 mmol/L (136-145) 141 mmol/L (136-145) Potassium Level 3.3 mmol/L (3.5-5.1) 3.9 mmol/L (3.5-5.1) Chloride Level 102 mmol/L (98-107) 105 mmol/L (98-107) Carbon Dioxide Level 27 mmol/L (21-32) 26 mmol/L (21-32) Anion Gap 10 (6-14) 10 (6-14) Blood Urea Nitrogen 8 mg/dL (7-20) 8 mg/dL (7-20) Creatinine 0.7 mg/dL (0.6-1.0) 0.8 mg/dL (0.6-1.0) Estimated GFR (Cockcroft-Gault) 90.1 77.2 BUN/Creatinine Ratio 11 (6-20) Glucose Level 84 mg/dL (70-99) 95 mg/dL (70-99) Calcium Level 8.5 mg/dL (8.5-10.1) 8.2 mg/dL (8.5-10.1) Magnesium Level 2.0 mg/dL (1.8-2.4) 2.1 mg/dL (1.8-2.4) Total Bilirubin 0.4 mg/dL (0.2-1.0) Aspartate Amino Transf (AST/SGOT) 25 U/L (15-37) Alanine Aminotransferase (ALT/SGPT) 26 U/L (14-59) Alkaline Phosphatase 83 U/L (46-116) Troponin I Quantitative < 0.017 ng/mL (0.000-0.055) < 0.017 ng/mL (0.000-0.055) < 0.017 ng/mL (0.000-0.055) SM-Wpa-U-Type Natriuretic Peptide 45 pg/mL (0-124) Total Protein 7.4 g/dL (6.4-8.2) Albumin 3.9 g/dL (3.4-5.0) 3.1 g/dL (3.4-5.0) Albumin/Globulin Ratio 1.1 (1.0-1.7) Lipase 102 U/L (73-393) Phosphorus Level 3.3 mg/dL (2.6-4.7) Triglycerides Level 319 mg/dL (0-150) Cholesterol Level 198 mg/dL (0-200) LDL Cholesterol, Calculated 97 mg/dL (0-100) VLDL Cholesterol, Calculated 64 mg/dL (0-40) Non-HDL Cholesterol Calculated 161 mg/dL (0-129) HDL Cholesterol 37 mg/dL (40-60) Cholesterol/HDL Ratio 5.4 Thyroid Stimulating Hormone (TSH) 3.580 uIU/mL (0.358-3.74) Glucose (Fingerstick) 114 mg/dL (70-99) Test 10/25/19 20:39 10/26/19 11:57 Glucose (Fingerstick) 98 mg/dL (70-99) 127 mg/dL (70-99) Laboratory Tests Test 10/25/19 16:18 10/25/19 20:39 10/26/19 11:57 Glucose (Fingerstick) 114 mg/dL (70-99) 98 mg/dL (70-99) 127 mg/dL (70-99) Medications Current Medications Aspirin (Aspirin Chewable) 324 mg 1X ONCE PO Last administered on 10/24/19at 19:04; Start 10/24/19 at 18:45; Stop 10/24/19 at 18:46; Status DC Morphine Sulfate (Morphine Sulfate) 4 mg PRN Q15MIN PRN IV/SQ PAIN GREATER THAN 3/10 Last administered on 10/24/19at 19:04; Start 10/24/19 at 18:45; Stop 10/25/19 at 18:44; Status DC Sodium Chloride 1,000 ml @ 1,000 mls/hr Q1H IV Last administered on 10/24/19at 19:05; Start 10/24/19 at 18:33; Stop 10/24/19 at 19:32; Status DC Ondansetron HCl (Zofran) 4 mg 1X ONCE IVP Last administered on 10/24/19at 19:04; Start 10/24/19 at 18:45; Stop 10/24/19 at 18:46; Status DC Ondansetron HCl (Zofran) 4 mg PRN Q8HRS PRN IV NAUSEA/VOMITING Last administered on 10/25/19at 09:52; Start 10/24/19 at 19:30; Stop 10/25/19 at 19:29; Status DC Morphine Sulfate (Morphine Sulfate) 4 mg PRN Q2HR PRN IV PAIN Last administered on 10/25/19at 02:02; Start 10/24/19 at 19:30; Stop 10/25/19 at 19:29; Status DC Enoxaparin Sodium (Lovenox Per Pharmacy Prophylaxis Dosing) 1 each PRN DAILY PRN MC SEE COMMENTS; Start 10/25/19 at 08:45; Status Cancel Dextrose/Sodium Chloride 1,000 ml @ 100 mls/hr Q10H IV Last administered on 10/25/19at 12:04; Start 10/25/19 at 10:00; Stop 10/25/19 at 16:28; Status DC Lisinopril (Prinivil) 5 mg DAILY PO ; Start 10/25/19 at 16:30; Stop 10/25/19 at 16:25; Status DC Lisinopril (Prinivil) 5 mg QHS PO Last administered on 10/25/19at 20:34; Start 10/25/19 at 21:00 Acetaminophen (Tylenol) 650 mg PRN Q6HRS PRN PO MILD PAIN / TEMP > 100.3'F Last administered on 10/25/19at 20:35; Start 10/25/19 at 20:15 Ondansetron HCl (Zofran) 4 mg PRN Q6HRS PRN IVP NAUSEA/VOMITING; Start 10/25/19 at 20:15 Active Scripts Active Children's Aspirin (Aspirin) 81 Mg Tab.chew 1 Tab PO DAILY 30 Days Lisinopril 5 Mg Tablet 5 Mg PO QHS Reported Gabapentin 600 Mg Tablet 300 Mg PO BID PRN Vitals/I & O Vital Sign - Last 24 Hours 10/25/19 10/25/19 10/25/19 10/25/19 14:08 19:33 19:45 20:34 Temp 98.0 98.1 98.0 98.1 Pulse 79 76 76 Resp 18 16 B/P (MAP) 147/75 (99) 134/80 (98) 134/80 Pulse Ox 100 97 O2 Delivery Room Air Room Air Room Air 10/25/19 10/26/19 10/26/19 10/26/19 22:55 03:54 07:00 08:00 Temp 98.6 97.8 97.7 98.6 97.8 97.7 Pulse 83 63 71 Resp 16 16 16 B/P (MAP) 132/82 (99) 120/68 (85) 107/62 (77) Pulse Ox 97 98 96 O2 Delivery Nasal Cannula BiPAP/CPAP Room Air Room Air O2 Flow Rate 1.5 10/26/19 10:49 Temp 98.0 98.0 Pulse 80 Resp 16 B/P (MAP) 122/73 (89) Pulse Ox 98 O2 Delivery Room Air Intake and Output 10/25/19 10/25/19 10/26/19 15:00 23:00 07:00 Intake Total 240 ml 200 ml Output Total 150 ml 150 ml Balance 90 ml 50 ml LOLIS HAUSER MD October 26, 2019 13:38
--- NOTE | 2019-10-26 14:12 | NUR ---
Discharge Note: SAMANTA MALONEY Discharge instructions and discharge home medications reviewed with Patient and a copy given. All questions have been answered and understanding verbalized.
== END 2019-10-26 13:00 | disposition home or self-care (01) | DRG 880 ==
LOC: ER 18:06 → 2 NORTH 19:24
PROVIDERS: ADMIT Family Medicine; ATTEND Family Medicine
PROC: 5A09357 Assistance with Respiratory Ventilation, Less than 24 Consecutive Hours, Continuous Positive Airway Pressure (ICD-10-PCS; principal; 2019-10-26)
DX: F41.9 Anxiety disorder, unspecified (principal); I16.0 Hypertensive urgency; R07.89 Other chest pain; E11.9 Type 2 diabetes mellitus without complications; E66.9 Obesity, unspecified; E78.5 Hyperlipidemia, unspecified; G89.29 Other chronic pain; I10 Essential (primary) hypertension; I25.2 Old myocardial infarction; I25.10 Atherosclerotic heart disease of native coronary artery without angina pectoris; J44.9 Chronic obstructive pulmonary disease, unspecified; Y99.0 Civilian activity done for income or pay; Z68.33 Body mass index [BMI] 33.0-33.9, adult; Z82.49 Family history of ischemic heart disease and other diseases of the circulatory system; Z86.73 Personal history of transient ischemic attack (TIA), and cerebral infarction without residual deficits; Z90.710 Acquired absence of both cervix and uterus; Z91.19 Patient's noncompliance with other medical treatment and regimen; G43.909 Migraine, unspecified, not intractable, without status migrainosus; G62.9 Polyneuropathy, unspecified; K21.9 Gastro-esophageal reflux disease without esophagitis; Z90.49 Acquired absence of other specified parts of digestive tract; Z88.2 Allergy status to sulfonamides; Z88.8 Allergy status to other drugs, medicaments and biological substances; Z91.048 Other nonmedicinal substance allergy status
CPT/HCPCS: 36415; 71045; 80053; 80061; 80069; 82962; 83690; 83735; 83880; 84443; 84484; 85025; 93005; 93306; 96361; 96374; 96375; 99285; J2270; J2405; J7030; J7042; G0378